=== PATIENT | male | born 1990 | race Two or more races ===

== ENCOUNTER 2024-03-08 06:15 | Emergency (ER) | payer OTHER ==
[~2024-03-08] VITALS: Ht 172.7 cm; Wt 117.9 kg
[2024-03-08] MEDS ORDERED: LIDOCAINE 1% INJ 50 ML MDV IJ ONE (06:31)
[2024-03-08] MEDS ORDERED: BACI/NEOM/POLY B OINT PKT 1 UDPKT PACKET ONE (06:33)
[2024-03-08] MEDS ORDERED: TDAP [DIPH/PERTUSSIS/TET] 0.5 ML VIAL IM ONE (06:34)
[2024-03-08] MEDS: LIDOCAINE 1% INJ 50 ML MDV IJ ONE (06:35)
[2024-03-08] MEDS: TDAP [DIPH/PERTUSSIS/TET] 0.5 ML VIAL IM ONE (06:36)
[2024-03-08] MEDS: BACI/NEOM/POLY B OINT PKT 1 UDPKT PACKET TP ONE (06:36)
[2024-03-08 09:01] VITALS: BP 131/76; TEMP 98.5; O2SAT 99
== END 2024-03-08 09:01 ==
LOC: ER 06:24
DX: S01.111A Laceration without foreign body of right eyelid and periocular area, initial encounter (principal); R51.9 Headache, unspecified; M54.2 Cervicalgia; Z60.2 Problems related to living alone; V89.2XXA Person injured in unspecified motor-vehicle accident, traffic, initial encounter; Y93.89 Activity, other specified; Y92.89 Other specified places as the place of occurrence of the external cause; Y99.8 Other external cause status
CPT/HCPCS: 12013; 70450; 71045; 72125; 90471; 90715; 99285; J3490